=== PATIENT | male | born 1995 | race African-American/Black ===

== ENCOUNTER 2024-12-30 06:37 | Emergency (ER) | payer MEDICAID, OTHER ==
[~2024-12-30] VITALS: Ht 182.9 cm; Wt 85.0 kg
[~2024-12-30 06:37] MED LIST: albuterol; prednisone
[2024-12-30 06:41] VITALS: BP 146/87; PULSE 106; RESP 14; TEMP 36.6; O2SAT 97
== END 2024-12-30 07:26 | disposition left against medical advice (07) ==
LOC: ER 06:37 → CANBEDREQ 07:49
DX: R55 Syncope and collapse (principal); E11.9 Type 2 diabetes mellitus without complications; Z79.899 Other long term (current) drug therapy
CPT/HCPCS: 93005; 99283